=== PATIENT | female | born 1970 | race Caucasian/White ===

== ENCOUNTER → 2018-03-14 | Outpatient (CLI) | payer BC ==
--- NOTE | 2018-03-15 10:43 | MM ---
Reason for exam: screening (asymptomatic). Last mammogram was performed 4 years and 8 months ago. Physical Findings: A clinical breast exam by your physician is recommended on an annual basis and results should be correlated with mammographic findings. MG 3D Screening Mammo W/Cad Bilateral CC and MLO view(s) were taken. Prior study comparison: July 17, 2013, bilateral digital screening mammo w/CAD. No suspicious calcifications are seen. Focal asymmetry inner left CC view. ASSESSMENT: Incomplete: need additional imaging evaluation, BI-RAD 0 RECOMMENDATION: Special view mammogram of the left breast. If lesion persists on supplemental views, image directed ultrasound is recommended. [facility] will attempt to contact patient to return for supplemental views and ultrasound if indicated.
== END | disposition home or self-care (01) ==
LOC: RADMAMWWP 07:12
PROVIDERS: ATTEND Obstetrics & Gynecology
DX: Z12.31 Encounter for screening mammogram for malignant neoplasm of breast (principal)
CPT/HCPCS: 77063; 77067

== ENCOUNTER → 2018-03-17 | Outpatient (CLI) | payer BC ==
--- NOTE | 2018-03-17 09:44 | MM ---
Reason for exam: additional evaluation requested from abnormal screening. Last mammogram was performed less than 1 month ago. Physical Findings: Nurse Summary: 0.5cm nodule in the left breast at 2 o'clock, 4 o'clock (nurse kp). MG 3D Work Up W/Cad LT Spot compression CC, spot compression MLO, and LM view(s) were taken of the left breast. Prior study comparison: March 14, 2018, bilateral MG 3d screening mammo w/cad. July 17, 2013, bilateral digital screening mammo w/CAD. There are scattered fibroglandular densities. The questioned medial asymmetry disperses on additional views. 2 o'clock and 4 o'clock palpable markers. These results were verbally communicated with the patient and result sheet given to the patient on 03/17/18. ASSESSMENT: Incomplete: need additional imaging evaluation, BI-RAD 0 RECOMMENDATION: Ultrasound of the left breast. lateral half
--- NOTE | 2018-03-17 09:46 | USB ---
Reason for exam: additional evaluation requested from abnormal screening. US Breast Workup Limited LT Left limited breast ultrasound including focal area of concern, retroareolar and axilla demonstrates a 0.4 x 0.4 x 0.2cm oval, benign cyst at 12 o'clock and ductal ectasia at 1-2 o'clock retroareolar. A couple benign appearing nodes in the axilla. No abnormality seen at the 2 o'clock and 4 o'clock nurse palpated sites. These results were verbally communicated with the patient and result sheet given to the patient on 03/17/18. ASSESSMENT: Benign, BI-RAD 2 RECOMMENDATION: Return to routine screening mammogram schedule for both breasts. Manage on a clinical basis with regard to any suspicious palpable abnormality.
== END | disposition home or self-care (01) ==
LOC: RADMAMWWP 07:18
PROVIDERS: ATTEND Obstetrics & Gynecology
DX: R92.8 Other abnormal and inconclusive findings on diagnostic imaging of breast (principal)
CPT/HCPCS: 77061; 77065

== ENCOUNTER 2018-10-11 14:11 | Inpatient (IN) | payer BC ==
[2018-10-11] MEDS ORDERED: ONDANSETRON 4 MG/2 ML VIAL IVP STA (15:00)
[2018-10-11] MEDS ORDERED: SODIUM CHLORIDE 0.9% 1,000 ML IV STA ×2 (15:00→16:06)
[2018-10-11] MEDS ORDERED: ACETAMINOPHEN TAB 325 MG TAB PO STA (15:02)
--- NOTE | 2018-10-11 15:24 | ED ---
General Adult HPI <Justus Negrete - Last Filed: 10/11/18 18:19> - General Source: patient, RN notes reviewed, old records reviewed Mode of arrival: ambulatory Limitations: no limitations <Kevin Prince - Last Filed: 10/12/18 00:40> - General Chief complaint: Abdominal Pain Stated complaint: Abd pain Time Seen by Provider: 10/11/18 14:35 - History of Present Illness Initial comments: 47-year-old female patient no pertinent past medical history presents to ED with 2 days of generalized abdominal pain. Patient does state that the abdominal pain is worse in her epigastric region, describes she has had some stabbing pain in the epigastric region and generalized cramping in the base of her abdomen. Patient states that she has had nausea and vomiting today without any diarrhea. Patient also states that she has pain in her epigastric region when she takes a deep breath. Patient denies ruby chest pain or shortness of breath. Patient denies any dysuria or vaginal bleeding. Patient states that she is not . Patient denies other complaints. Systemic: Pt denies fatigue, myalgia, fever/chills, rash. Pt denies weakness, night sweats, weight loss. Neuro: Pt denies headache, visual disturbances, syncope or pre-syncope. HEENT: Pt denies ocular discharge or irritation, otalgia, rhinorrhea, pharyngitis or notable lymphadenopathy. Cardiopulmonary: Pt denies chest pain, SOB, heart palpitations, dyspnea on exertion. : Pt denies dysuria, burning w/ urination, frequency/urgency. Denies new onset urinary or bowel incontinence. MSK: Pt denies myalgia, loss of strength or function in extremities. Neuro: Pt denies new onset weakness, paresthesias. (Kevin Prince) - Related Data Home Medications Medication Instructions Recorded Confirmed Cetirizine HCl [Zyrtec] 10 mg PO DAILY PRN 10/11/18 10/11/18 Allergies Allergy/AdvReac Type Severity Reaction Status Date / Time No Known Allergies Allergy Verified 10/11/18 15:03 Review of Systems ROS Other: All systems not noted in ROS Statement are negative. <Justus Negrete - Last Filed: 10/11/18 18:19> ROS Other: All systems not noted in ROS Statement are negative. <Kevin Prince - Last Filed: 10/12/18 00:40> ROS Statement: Those systems with pertinent positive or pertinent negative responses have been documented in the HPI. Past Medical History Past Medical History: No Reported History History of Any Multi-Drug Resistant Organisms: None Reported Past Surgical History: No Surgical Hx Reported Past Psychological History: No Psychological Hx Reported Smoking Status: Former smoker Past Alcohol Use History: Rare Past Drug Use History: None Reported <Kevin Prince - Last Filed: 10/12/18 00:40> General Exam <Justus Negrete - Last Filed: 10/11/18 18:19> Limitations: no limitations <Kevin Prince - Last Filed: 10/12/18 00:40> - General Exam Comments Initial Comments: Constitutional: NAD, AOX3, Pt has pleasant affect. HEENT: NC/AT, trachea midline, neck supple, no lymphadenopathy. Posterior pharynx non erythematous, without exudates. External ears appear normal, without discharge. Mucous membranes moist. Eyes PERRLA, EOM intact. There is no scleral icterus. No pallor noted. Cardiopulmonary: RRR, no murmurs, rubs or gallops, no JVD noted. Lungs CTAB in anterior and posterior cr. No peripheral edema. Abdominal exam: Abdomen soft and non-distended. Mildly tender to palpation in epigastric region, murphys sign positive. no guarding or rigidity, no ecchymosis. Bowel sounds active in LLQ. No hepatosplenomegaly. Neuro: CN II-XII grossly intact. No nuchal rigidity. MSK: No posterior calf tenderness bilaterally, homans sign negative bilaterally. Posterior tibialis and radial pulse +2 bilaterally. Sensation intact in upper and lower extremities. Full active ROM in upper and lower extremities, 5/5 stregnth. (Kevin Prince) Course <Justus Negrete - Last Filed: 10/11/18 18:19> <Kevin Prince - Last Filed: 10/12/18 00:40> Vital Signs 10/11/18 10/11/18 10/11/18 14:16 14:42 15:00 Temperature 98.1 F Pulse Rate 72 72 68 Respiratory 18 8 L 19 Rate Blood Pressure 139/81 137/80 O2 Sat by Pulse 98 98 97 Oximetry 10/11/18 10/11/18 10/11/18 16:00 17:00 18:00 Temperature Pulse Rate 67 57 L 75 Respiratory 18 13 15 Rate Blood Pressure 136/91 118/74 114/72 O2 Sat by Pulse 98 99 96 Oximetry 10/11/18 10/11/18 10/11/18 19:00 20:00 21:00 Temperature Pulse Rate 63 66 67 Respiratory 17 15 10 L Rate Blood Pressure 115/72 135/82 134/75 O2 Sat by Pulse 95 97 100 Oximetry - Reevaluation(s) Reevaluation #1: 10/11/18 18:19 Case was discussed in detail with Dr. Jefferson, covering for Dr. Hebert. Case also discussed in detail with Dr. Carcamo. IV antibiotics will be started. GI will be placed on consult. (Justus Negrete) Medical Decision Making - Lab Data Result diagrams: 10/11/18 14:40 10/11/18 14:40 <Justus Negrete - Last Filed: 10/11/18 18:19> - Lab Data Result diagrams: 10/11/18 14:40 10/11/18 14:40 - EKG Data -: EKG Interpreted by Wy <Kevin Prince - Last Filed: 10/12/18 00:40> - Medical Decision Making 47-year-old female patient no pertinent past medical history presents to ED with 2 days of generalized abdominal pain. Patient does state that the abdominal pain is worse in her epigastric region, describes she has had some stabbing pain in the epigastric region and generalized cramping in the base of her abdomen. Patient states that she has had nausea and vomiting today without any diarrhea. Patient also states that she has pain in her epigastric region when she takes a deep breath. Patient denies ruby chest pain or shortness of breath. Patient denies any dysuria or vaginal bleeding. Patient states that she is not . Patient denies other complaints. Pt VSS, afebrile. Physical exam displayed: Abdomen soft and non-distended. Mildly tender to palpation in epigastric region, murphys sign positive. no guarding or rigidity, no ecchymosis. Bowel sounds active in LLQ. No hepatosplenomegaly. Laboratory investigations revealed non-impressive CBC, d-dimer negative. CMP revealed AST of 549, a LT of 423. Total bilirubin mildly elevated at 1.7. Plasma lactic acid was elevated at 2.3. Repeat plasma lactic acid was within normal limits after fluid administration. Urine hCG was negative. Ultrasound abdomen revealed positive sonographic Butler sign. Correlate for hepatic steatosis. Hepatomegaly. Cholelithiasis. Borderline dilated common bile duct. EKG not concerning for acute ischemia. Case was discussed in depth with Dr. Negrete. Patient to be admitted to medicine with Gen. surgery consult. GI also consulted. Pt started on IV abx. (Kevin Prince) - Lab Data Lab Results 10/11/18 10/11/18 10/11/18 Range/Units 14:40 14:40 14:40 WBC 4.5 (3.8-10.6) k/uL RBC 4.26 (3.80-5.40) m/uL Hgb 13.3 (11.4-16.0) gm/dL Hct 39.2 (34.0-46.0) % MCV 92.0 (80.0-100.0) fL MCH 31.1 (25.0-35.0) pg MCHC 33.8 (31.0-37.0) g/dL RDW 13.4 (11.5-15.5) % Plt Count 245 (150-450) k/uL Neutrophils % 64 % Lymphocytes % 25 % Monocytes % 6 % Eosinophils % 2 % Basophils % 1 % Neutrophils # 2.9 (1.3-7.7) k/uL Lymphocytes # 1.1 (1.0-4.8) k/uL Monocytes # 0.3 (0-1.0) k/uL Eosinophils # 0.1 (0-0.7) k/uL Basophils # 0.0 (0-0.2) k/uL D-Dimer (<0.60) mg/L FEU Sodium 139 (137-145) mmol/L Potassium 4.6 (3.5-5.1) mmol/L Chloride 103 (98-107) mmol/L Carbon Dioxide 25 (22-30) mmol/L Anion Gap 11 mmol/L BUN 13 (7-17) mg/dL Creatinine 0.75 (0.52-1.04) mg/dL Est GFR (CKD-EPI)AfAm >90 (>60 ml/min/1.73 sqM) Est GFR (CKD-EPI)NonAf >90 (>60 ml/min/1.73 sqM) Glucose 99 (74-99) mg/dL Lactic Ac Sepsis Rflx Plasma Lactic Acid Jorge 2.3 H* (0.7-2.0) mmol/L Calcium 9.9 (8.4-10.2) mg/dL Total Bilirubin 1.7 H (0.2-1.3) mg/dL AST 549 H (14-36) U/L ALT 423 H (9-52) U/L Alkaline Phosphatase 106 (38-126) U/L Troponin I (0.000-0.034) ng/mL Total Protein 8.3 H (6.3-8.2) g/dL Albumin 4.5 (3.5-5.0) g/dL Amylase 54 (30-110) U/L Lipase 193 (23-300) U/L Urine HCG, Qual (Not Detectd) 10/11/18 10/11/18 10/11/18 Range/Units 14:40 14:40 14:40 WBC (3.8-10.6) k/uL RBC (3.80-5.40) m/uL Hgb (11.4-16.0) gm/dL Hct (34.0-46.0) % MCV (80.0-100.0) fL MCH (25.0-35.0) pg MCHC (31.0-37.0) g/dL RDW (11.5-15.5) % Plt Count (150-450) k/uL Neutrophils % % Lymphocytes % % Monocytes % % Eosinophils % % Basophils % % Neutrophils # (1.3-7.7) k/uL Lymphocytes # (1.0-4.8) k/uL Monocytes # (0-1.0) k/uL Eosinophils # (0-0.7) k/uL Basophils # (0-0.2) k/uL D-Dimer 0.42 (<0.60) mg/L FEU Sodium (137-145) mmol/L Potassium (3.5-5.1) mmol/L Chloride (98-107) mmol/L Carbon Dioxide (22-30) mmol/L Anion Gap mmol/L BUN (7-17) mg/dL Creatinine (0.52-1.04) mg/dL Est GFR (CKD-EPI)AfAm (>60 ml/min/1.73 sqM) Est GFR (CKD-EPI)NonAf (>60 ml/min/1.73 sqM) Glucose (74-99) mg/dL Lactic Ac Sepsis Rflx Plasma Lactic Acid Jorge (0.7-2.0) mmol/L Calcium (8.4-10.2) mg/dL Total Bilirubin (0.2-1.3) mg/dL AST (14-36) U/L ALT (9-52) U/L Alkaline Phosphatase (38-126) U/L Troponin I <0.012 (0.000-0.034) ng/mL Total Protein (6.3-8.2) g/dL Albumin (3.5-5.0) g/dL Amylase (30-110) U/L Lipase (23-300) U/L Urine HCG, Qual Not Detected (Not Detectd) 10/11/18 Range/Units 15:59 WBC (3.8-10.6) k/uL RBC (3.80-5.40) m/uL Hgb (11.4-16.0) gm/dL Hct (34.0-46.0) % MCV (80.0-100.0) fL MCH (25.0-35.0) pg MCHC (31.0-37.0) g/dL RDW (11.5-15.5) % Plt Count (150-450) k/uL Neutrophils % % Lymphocytes % % Monocytes % % Eosinophils % % Basophils % % Neutrophils # (1.3-7.7) k/uL Lymphocytes # (1.0-4.8) k/uL Monocytes # (0-1.0) k/uL Eosinophils # (0-0.7) k/uL Basophils # (0-0.2) k/uL D-Dimer (<0.60) mg/L FEU Sodium (137-145) mmol/L Potassium (3.5-5.1) mmol/L Chloride (98-107) mmol/L Carbon Dioxide (22-30) mmol/L Anion Gap mmol/L BUN (7-17) mg/dL Creatinine (0.52-1.04) mg/dL Est GFR (CKD-EPI)AfAm (>60 ml/min/1.73 sqM) Est GFR (CKD-EPI)NonAf (>60 ml/min/1.73 sqM) Glucose (74-99) mg/dL Lactic Ac Sepsis Rflx Y Plasma Lactic Acid Jorge (0.7-2.0) mmol/L Calcium (8.4-10.2) mg/dL Total Bilirubin (0.2-1.3) mg/dL AST (14-36) U/L ALT (9-52) U/L Alkaline Phosphatase (38-126) U/L Troponin I (0.000-0.034) ng/mL Total Protein (6.3-8.2) g/dL Albumin (3.5-5.0) g/dL Amylase (30-110) U/L Lipase (23-300) U/L Urine HCG, Qual (Not Detectd) - EKG Data EKG Comments: Ventricular rate 60, DC interval 150, QRS 84, QT/QTc 410/410. Normal sinus rhythm, normal EKG. (Kevin Prince) Disposition <Justus Negrete - Last Filed: 10/11/18 18:19> Is patient prescribed a controlled substance at d/c from ED?: No <Kevin Prince - Last Filed: 10/12/18 00:40> Clinical Impression: Abdominal pain Disposition: ADMITTED IP TO THIS HOSP Condition: Serious
[2018-10-11 15:43] LABS: Basophils % (A) 1 %; Eosinophils # (A) 0.1 k/uL (0-0.7); Eosinophils % (A) 2 %; HCT 39.2 % (34.0-46.0); HGB 13.3 gm/dL (11.4-16.0); Lymphocytes # (A) 1.1 k/uL (1.0-4.8); Lymphocytes % (A) 25 %; MCH 31.1 pg (25.0-35.0); MCHC 33.8 g/dL (31.0-37.0); Mean Platelet Volume 7.2; Monocytes # (A) 0.3 k/uL (0-1.0); Monocytes % (A) 6 %; Neutrophils # (A) 2.9 k/uL (1.3-7.7); Neutrophils % (A) 64 %; Platelet Count 245 k/uL (150-450); RBC 4.26 m/uL (3.80-5.40); RDW 13.4 % (11.5-15.5); WBC 4.5 k/uL (3.8-10.6)
[2018-10-11 15:55] LABS: ALT 423 U/L (9-52); AST 549 U/L (14-36); Albumin 4.5 g/dL (3.5-5.0); Alkaline Phosphatase 106 U/L (38-126); Amylase 54 U/L (30-110); Anion Gap 11 mmol/L; Blood Urea Nitrogen 13 mg/dL (7-17); Calcium 9.9 mg/dL (8.4-10.2); Carbon Dioxide 25 mmol/L (22-30); Chloride 103 mmol/L (98-107); Glucose 99 mg/dL (74-99); Lipase 193 U/L (23-300); Potassium 4.6 mmol/L (3.5-5.1); Sodium 139 mmol/L (137-145); Total Bilirubin 1.7 mg/dL (0.2-1.3); Total Protein 8.3 g/dL (6.3-8.2)
[2018-10-11] MEDS ORDERED: HYDROcodone/APAP 5-325MG 1 EACH TAB PO STA (16:21)
--- NOTE | 2018-10-11 16:27 | US ---
EXAMINATION TYPE: US abdomen complete DATE OF EXAM: 10/11/2018 COMPARISON: NONE CLINICAL HISTORY: Pain. abd pain EXAM MEASUREMENTS: Liver Length: 18.3 cm, measurement may be somewhat underestimated Gallbladder Wall: 0.2 cm CBD: 0.7 cm Spleen: 13.1 cm Right Kidney: 10.4 x 4.5 x 5.1 cm Left Kidney: 11.3 x 4.2 x 5.4 cm Pancreas: wnl in visualized portions Liver: slightly enlarged, difficult to penetrate Gallbladder: multiple stones seen Evidence for sonographic Butler's sign: YES CBD: Borderline dilated Spleen: enlarged Right Kidney: wnl Left Kidney: wnl Upper IVC: wnl Abd Aorta: wnl Right and left kidney show normal cortical medullary differentiation. No ascites. IMPRESSION: Positive sonographic Butler's sign. Correlate for hepatic steatosis. Hepatomegaly. Cholel ithiasis. Borderline dilated common bile duct.
[2018-10-11] MEDS ORDERED: ONDANSETRON 4 MG/2 ML VIAL IVP PRN (17:25)
[2018-10-11] MEDS ORDERED: ACETAMINOPHEN TAB 325 MG TAB PO PRN (17:25)
[2018-10-11] MEDS ORDERED: NALOXONE 0.4 MG/ML 1 ML VIAL IV PRN (17:25)
[2018-10-11] MEDS ORDERED: AMPICILLIN-SULBACTAM 3 GM in SODIUM CHLORIDE 0.9% 50 ML IVPB SCH (18:00)
[2018-10-11] MEDS ORDERED: AMPICILLIN-SULBACTAM 3 GM in SODIUM CHLORIDE 0.9% 100 ML IVPB STA (18:34)
[2018-10-12] MEDS: AMPICILLIN-SULBACTAM 3 GM in SODIUM CHLORIDE 0.9% 100 ML IVPB SCH ×4 (00:13→19:15)
[2018-10-12] MEDS: SODIUM CHLORIDE 0.9% 1,000 ML IV SCH ×2 (00:14→19:17)
[2018-10-12] MEDS: HYDROcodone/APAP 5-325MG 1 EACH TAB PO PRN ×2 (03:18→22:18)
[2018-10-12 08:18] LABS: Basophils % (A) 0 %; Eosinophils # (A) 0.1 k/uL (0-0.7); Eosinophils % (A) 2 %; HCT 34.8 % (34.0-46.0); HGB 11.7 gm/dL (11.4-16.0); Lymphocytes % (A) 33 %; MCH 31.8 pg (25.0-35.0); MCHC 33.7 g/dL (31.0-37.0); MCV 94.4 fL (80.0-100.0); Mean Platelet Volume 6.8; Monocytes # (A) 0.2 k/uL (0-1.0); Monocytes % (A) 5 %; Neutrophils # (A) 1.8 k/uL (1.3-7.7); Neutrophils % (A) 57 %; Platelet Count 184 k/uL (150-450); RBC 3.68 m/uL (3.80-5.40); RDW 13.4 % (11.5-15.5); WBC 3.1 k/uL (3.8-10.6)
[2018-10-12 08:27] LABS: ALT 471 U/L (9-52); AST 357 U/L (14-36); Albumin 3.8 g/dL (3.5-5.0); Alkaline Phosphatase 94 U/L (38-126); Anion Gap 7 mmol/L; Blood Urea Nitrogen 12 mg/dL (7-17); Calcium 8.6 mg/dL (8.4-10.2); Carbon Dioxide 28 mmol/L (22-30); Chloride 107 mmol/L (98-107); Glucose 111 mg/dL (74-99); Potassium 5.2 mmol/L (3.5-5.1); Sodium 142 mmol/L (137-145); Total Bilirubin 1.3 mg/dL (0.2-1.3); Total Protein 6.8 g/dL (6.3-8.2)
[2018-10-12] MEDS ORDERED: PROCHLORPERAZINE SUPPOSITORY 25 MG SUPP RECTAL PRN (09:43)
[2018-10-12] MEDS ORDERED: ONDANSETRON 4 MG/2 ML VIAL IVP PRN (09:43)
--- NOTE | 2018-10-12 09:43 | P.CONS ---
History of Present Illness - Reason for Consult Consult date: 10/12/18 Elevated liver enzymes abdominal pain Requesting physician: Roberto Carlos Jefferson - Chief Complaint Abdominal pain - History of Present Illness 47-year-old female with no significant past medical history, obesity BMI 32, admitted with acute abdominal pain elevated liver enzymes intermittent 1 week. Patient states a week ago she experienced sharp abdominal across mid abdomen but the other day it localized more to the right upper quadrant with nausea and no emesis. No history of known liver disorders. No history of hepatitis. No history of medication changes, alcoholism, or intravenous drug abuse. Denies fever chills hematemesis hematochezia melena. White count 4.5. Hemoglobin 13.3 total bilirubin 1.7. AST 549. ALT 423. AP 109. HCG not detected. Lipase 193. Ultrasound reported multiple gallstones. CBD 7 mm. Hepatic steatosis. Hepatomegaly 18.3 cm. Review of Systems Constitutional: Denies fever, chills, sweats, weight gain, or loss. HEENT: Negative for migraines, blurred vision or loss, earaches, drainage, tinnitus, oral mucosal lesions, dysphagia, or odynophagia. CARDIAC: Negative for chest pain, arrhythmias, or palpitation. RESPIRATORY: Negative for shortness of breath, hemoptysis, cough, or sputum production. GI: See HPI for pertinent findings. : Negative for hematuria, urgency, frequency, polyuria, or dysuria. GYNc: Denies possibility of . Negative vaginal discharge. MUSCULOSKELETAL: Negative for muscle aches, swelling, arthritis, and arthralgias. NEUROLOGIC: Negative for stroke or TIA. ENDOCRINE: Negative for thyroid problems. SKIN: Negative for rash or itching. PSYCHIATRIC: Negative history for depression and anxiety Past Medical History Past Medical History: No Reported History Additional Past Medical History / Comment(s): pt denies any medical problems except for sinsus and seasonal allergies History of Any Multi-Drug Resistant Organisms: None Reported Past Surgical History: No Surgical Hx Reported Past Anesthesia/Blood Transfusion Reactions: No Reported Reaction Additional Past Anesthesia/Blood Transfusion Reaction / Comm: pt stated has never had any sx Past Psychological History: No Psychological Hx Reported Smoking Status: Former smoker Past Alcohol Use History: Rare Past Drug Use History: None Reported - Past Family History Mother Family Medical History: Hypertension Father Family Medical History: COPD, Hyperlipidemia, Hypertension Additional Family Medical History / Comment(s): ashd. fron a anaphylactic reaction unk source. Medications and Allergies Home Medications Medication Instructions Recorded Confirmed Type Cetirizine HCl [Zyrtec] 10 mg PO DAILY PRN 10/11/18 10/11/18 History Allergies Allergy/AdvReac Type Severity Reaction Status Date / Time No Known Allergies Allergy Verified 10/11/18 15:03 Physical Exam Vitals: Vital Signs Temp Pulse Pulse Resp BP BP Pulse Ox 10/12/18 07:34 16 10/12/18 07:29 98.0 F 59 L 16 141/90 90 L 10/12/18 00:15 98.2 F 66 15 116/66 97 10/11/18 22:05 98.8 F 65 15 125/81 96 10/11/18 21:00 67 10 L 134/75 100 10/11/18 20:00 66 15 135/82 97 10/11/18 19:00 63 17 115/72 95 10/11/18 18:00 75 15 114/72 96 10/11/18 17:00 57 L 13 118/74 99 10/11/18 16:00 67 18 136/91 98 10/11/18 15:00 68 19 137/80 97 10/11/18 14:42 72 8 L 98 10/11/18 14:16 98.1 F 72 18 139/81 98 Intake and Output 10/11/18 10/12/18 10/12/18 22:59 06:59 14:59 Other: # Voids 1 General appearance: The patient is alert, oriented, in no acute distress. HET: Head is normocephalic and atraumatic. Pupils are equal and reactive. Oropharynx is clear without lesions. Neck: Supple without lymphadenopathy. Trachea midline. Heart: S1 S2. Regular rate and rhythm. Lungs: No crackles or wheezes are heard. Abdomen: Soft, very mild tenderness midepigastrium right upper quadrant, nondistended with bowel sounds. No peritoneal signs. No palpable organomegaly or masses. Extremities: Normal skin color and turgor. No cyanosis, rash, ulceration, clubbing, or edema. Radial and pedal pulses are 2/4 bilaterally. Neurological: No focal deficits. Strength and sensation are grossly intact. Results CBC & Chem 7: 10/12/18 07:40 10/12/18 07:40 Labs: Abnormal Lab Results - Last 24 Hours (Table) 10/11/18 10/11/18 10/12/18 Range/Units 14:40 14:40 07:40 WBC 3.1 L (3.8-10.6) k/uL RBC 3.68 L (3.80-5.40) m/uL Potassium (3.5-5.1) mmol/L Glucose (74-99) mg/dL Plasma Lactic Acid Jorge 2.3 H* (0.7-2.0) mmol/L Total Bilirubin 1.7 H (0.2-1.3) mg/dL AST 549 H (14-36) U/L ALT 423 H (9-52) U/L Total Protein 8.3 H (6.3-8.2) g/dL 10/12/18 Range/Units 07:40 WBC (3.8-10.6) k/uL RBC (3.80-5.40) m/uL Potassium 5.2 H (3.5-5.1) mmol/L Glucose 111 H (74-99) mg/dL Plasma Lactic Acid Jorge (0.7-2.0) mmol/L Total Bilirubin (0.2-1.3) mg/dL AST 357 H (14-36) U/L ALT 471 H (9-52) U/L Total Protein (6.3-8.2) g/dL US - abdomen: report reviewed (Dr. Bucio) Assessment and Plan (1) Elevated liver enzymes Narrative/Plan: 47-year-old female admitted with intermittent one-week history of sharp abdominal right upper quadrant abdominal pain with elevated liver enzymes cholelithiasis with underlying hepatic steatosis. Possible symptomatic cholelithiasis underlying choledocholithiasis or passage of choledocholithiasis cannot be excluded. Total bilirubin normalized today transaminases slowly improving. Current Visit: Yes Status: Acute Code(s): R74.8 - ABNORMAL LEVELS OF OTHER SERUM ENZYMES SNOMED Code(s): 375697819 (2) Abdominal pain Current Visit: Yes Status: Acute Code(s): R10.9 - UNSPECIFIED ABDOMINAL PAIN SNOMED Code(s): 71932600 (3) Cholelithiasis Current Visit: Yes Status: Acute Code(s): K80.20 - CALCULUS OF GALLBLADDER W /O CHOLECYSTITIS W/O OBSTRUCTION SNOMED Code(s): 664553411 (4) Hepatic steatosis Current Visit: Yes Status: Acute Code(s): K76.0 - FATTY (CHANGE OF) LIVER, NOT ELSEWHERE CLASSIFIED SNOMED Code(s): 054997737 (5) Hepatomegaly Current Visit: Yes Status: Acute Code(s): R16.0 - HEPATOMEGALY, NOT ELSEWHERE CLASSIFIED SNOMED Code(s): 49861216 (6) Obesity (BMI 30.0-34.9) Current Visit: Yes Status: Chronic Code(s): E66.9 - OBESITY, UNSPECIFIED SNOMED Code(s): 668138782701817 Plan: 1. Hepatitis screen. 2. MRCP r/o choledocholithiasis. Case discussed with Dr. Oleary. Possible ERCP pending MRI results. 3. Daily CMP, CBC. Thank you for this kind referral and the opportunity to participate in the care of your patient. This consultation was discussed with Dr. Bucio. The impression and plan of care have been directed as dictated.
--- NOTE | 2018-10-12 13:44 | MR ---
EXAMINATION TYPE: MR MRCP DATE OF EXAM: 10/12/2018 COMPARISON: Ultrasound 10/11/2018 HISTORY: elevated liver enzymes abdominal pain Standard multiplanar, multisequence MRI departmental protocol Multiplanar, multisequence images of the upper abdomen were acquired. MRCP reconstructed images are p erformed by the technologist are presented. FINDINGS: Portions of the kidneys within the [id number] are unremarkable. Adrenal glands appear no rmal. Pancreas appears unremarkable. Signal through the liver appears within normal limits. No suspic ious masses or cysts are evident. Gallbladder contains filling defects. Pancreatic duct appears normal. Pancreas head appears normal. C ommon bile duct appears unremarkable on this study. Intrahepatic and extrahepatic biliary ducts where visualized appear normal. Cystic duct appears patent. IMPRESSION: 1. Normal MRCP of the common bile duct and visualized intrahepatic and extrahepatic biliary ducts. 2. Cholelithiasis. No suspicious changes suggest acute cholecystitis.
--- NOTE | 2018-10-12 14:55 | P.GSCN ---
<Aishwarya Moeller A - Last Filed: 10/12/18 14:54> History of Present Illness Consult date: 10/12/18 Reason for Consult: Possible cholecystitis, elevated liver enzymes Requesting physician: Kevin Prince History of present illness: CHIEF COMPLAINT: Abdominal pain HISTORY OF PRESENT ILLNESS: 47-year-old female presenting to the emergency room with a chief complaint of abdominal pain. Patient reports having abdominal pain near the epigastric region and right upper quadrant that began on Tuesday. She states the pain settled down and then got worse again Tuesday after eating dinner which included chicken and cheese. She reports that she has been having similar symptoms intermittently over the past month or two. She reports nausea but no emesis. Denies constipation or diarrhea. AST 549. ALT 423. Total bilirubin 1.7. GI is also consulted for evaluation. PAST MEDICAL HISTORY: See list. PAST SURGICAL HISTORY: See list. MEDICATIONS: See list. ALLERGIES: See list. SOCIAL HISTORY: No illicit drug use. REVIEW OF SYSTEMS: CONSTITUTIONAL: Denies fever or chills. HEENT: Denies blurred vision, vision changes, or eye pain. Denies hemoptysis ENDOCRINE: Denies heat or cold intolerance. CARDIOVASCULAR: Denies chest pain or pressure. RESPIRATORY: No shortness of breath. GASTROINTESTINAL: Reports abdominal pain. Reports nausea. Denies vomiting. NEURO: Denies history of seizures. PSYCH: No depression or suicidal ideation HEMATOLOGIC: Denies bleeding disorders. LYMPHATIC: The patient denies any lumps and bumps around the neck. GENITOURINARY: Denies any blood in urine or increased urinary frequency. MUSCULOSKELETAL: Denies myalgias. Denies joint swelling. Denies decreased range of motion beyond patients baseline. SKIN: Denies pruitis. Denies rash. PHYSICAL EXAM: VITAL SIGNS: Currently stable. GENERAL: Well-developed in no acute distress. Currently complaining of a headache. HEENT: No sclera icterus. Extraocular movements grossly intact. Moist buccal mucosa. Head is atraumatic, normocephalic. Hears conversational speech. No nasal drainage. NECK: Supple without lymphadenopathy. CHEST: Non-labored respirations and equal bilateral excursions. CARDIOVASCULAR: Regular rate with regular rhythm. Palpable 2+ radial pulses. ABDOMEN: Soft. Nondistended. Positive bowel sounds. Mild epigastric and right upper quadrant tenderness. MUSCULOSKELETAL: No clubbing, cyanosis or edema. NEUROLOGIC: No focal or lateralizing signs. Cranial nerves II through XII grossly intact. PSYCH: Appropriate affect. Alert and oriented to person, place and time. SKIN: Well perfused. Good skin turgor. IMAGING: Per radiology dictation: 1. Abdominal US: Hepatomegaly. 18.3 cm. Gallbladder wall 0.2 cm. Common bile duct 0.7 cm. Positive sonographic Butler sign. Correlate for hepatic steatosis. Multiple gallstones visualized. ASSESSMENT: 1. Epigastric and right upper quadrant abdominal pain x 4 days 2. Transaminitis 3. Hyperbilirubinemia 4. Cholelithiasis, possible choledocholithiasis, with possible underlying gallbladder dysfunction PLAN: 1. Patient scheduled for MRCP today per GI. Await results 2. Clear liquid diet 3. No immediate surgical intervention required 4. Monitor labs. Repeat in AM Nurse practitioner note has been reviewed by physician. Signing provider agrees with the documented findings, assessment, and plan of care. Past Medical History Past Medical History: No Reported History Additional Past Medical History / Comment(s): pt denies any medical problems except for sinsus and seasonal allergies History of Any Multi-Drug Resistant Organisms: None Reported Past Surgical History: No Surgical Hx Reported Past Anesthesia/Blood Transfusion Reactions: No Reported Reaction Additional Past Anesthesia/Blood Transfusion Reaction / Comm: pt stated has never had any sx Past Psychological History: No Psychological Hx Reported Smoking Status: Former smoker Past Alcohol Use History: Rare Past Drug Use History: None Reported - Past Family History Mother Family Medical History: Hypertension Father Family Medical History: COPD, Hyperlipidemia, Hypertension Additional Family Medical History / Comment(s): ashd. fron a anaphylactic reaction unk source. Medications and Allergies Home Medications Medication Instructions Recorded Confirmed Type Cetirizine HCl [Zyrtec] 10 mg PO DAILY PRN 10/11/18 10/11/18 History Allergies Allergy/AdvReac Type Severity Reaction Status Date / Time No Known Allergies Allergy Verified 10/11/18 15:03 Surgical - Exam Vital Signs Temp Pulse Resp BP Pulse Ox 98.1 F 72 18 139/81 98 10/11/18 14:16 10/11/18 14:16 10/11/18 14:16 10/11/18 14:16 10/11/18 14:16 Results - Labs 10/12/18 07:40 10/12/18 07:40 Abnormal Lab Results - Last 24 Hours (Table) 10/11/18 10/11/18 10/12/18 Range/Units 14:40 14:40 07:40 WBC 3.1 L (3.8-10.6) k/uL RBC 3.68 L (3.80-5.40) m/uL Potassium (3.5-5.1) mmol/L Glucose (74-99) mg/dL Plasma Lactic Acid Jorge 2.3 H* (0.7-2.0) mmol/L Total Bilirubin 1.7 H (0.2-1.3) mg/dL AST 549 H (14-36) U/L ALT 423 H (9-52) U/L Total Protein 8.3 H (6.3-8.2) g/dL 10/12/18 Range/Units 07:40 WBC (3.8-10.6) k/uL RBC (3.80-5.40) m/uL Potassium 5.2 H (3.5-5.1) mmol/L Glucose 111 H (74-99) mg/dL Plasma Lactic Acid Jorge (0.7-2.0) mmol/L Total Bilirubin (0.2-1.3) mg/dL AST 357 H (14-36) U/L ALT 471 H (9-52) U/L Total Protein (6.3-8.2) g/dL Diabetes panel 10/11/18 10/12/18 Range/Units 14:40 07:40 Sodium 139 142 (137-145) mmol/L Potassium 4.6 5.2 H (3.5-5.1) mmol/L Chloride 103 107 (98-107) mmol/L Carbon Dioxide 25 28 (22-30) mmol/L BUN 13 12 (7-17) mg/dL Creatinine 0.75 0.81 (0.52-1.04) mg/dL Glucose 99 111 H (74-99) mg/dL Calcium 9.9 8.6 (8.4-10.2) mg/dL AST 549 H 357 H (14-36) U/L ALT 423 H 471 H (9-52) U/L Alkaline Phosphatase 106 94 (38-126) U/L Total Protein 8.3 H 6.8 (6.3-8.2) g/dL Albumin 4.5 3.8 (3.5-5.0) g/dL Calcium panel 10/11/18 10/12/18 Range/Units 14:40 07:40 Calcium 9.9 8.6 (8.4-10.2) mg/dL Albumin 4.5 3.8 (3.5-5.0) g/dL Pituitary panel 10/11/18 10/12/18 Range/Units 14:40 07:40 Sodium 139 142 (137-145) mmol/L Potassium 4.6 5.2 H (3.5-5.1) mmol/L Chloride 103 107 (98-107) mmol/L Carbon Dioxide 25 28 (22-30) mmol/L BUN 13 12 (7-17) mg/dL Creatinine 0.75 0.81 (0.52-1.04) mg/dL Glucose 99 111 H (74-99) mg/dL Calcium 9.9 8.6 (8.4-10.2) mg/dL Adrenal panel 10/11/18 10/12/18 Range/Units 14:40 07:40 Sodium 139 142 (137-145) mmol/L Potassium 4.6 5.2 H (3.5-5.1) mmol/L Chloride 103 107 (98-107) mmol/L Carbon Dioxide 25 28 (22-30) mmol/L BUN 13 12 (7-17) mg/dL Creatinine 0.75 0.81 (0.52-1.04) mg/dL Glucose 99 111 H (74-99) mg/dL Calcium 9.9 8.6 (8.4-10.2) mg/dL Total Bilirubin 1.7 H 1.3 (0.2-1.3) mg/dL AST 549 H 357 H (14-36) U/L ALT 423 H 471 H (9-52) U/L Alkaline Phosphatase 106 94 (38-126) U/L Total Protein 8.3 H 6.8 (6.3-8.2) g/dL Albumin 4.5 3.8 (3.5-5.0) g/dL Assessment and Plan (1) Transaminitis Current Visit: Yes Status: Acute Code(s): R74.0 - NONSPEC ELEV OF LEVELS OF TRANSAMNS & LACTIC ACID DEHYDRGNSE SNOMED Code(s): 256496535 (2) Hyperbilirubinemia Current Visit: Yes Status: Acute Code(s): E80.6 - OTHER DISORDERS OF BILIRUBIN METABOLISM SNOMED Code(s): 73654647 (3) Abdominal pain Current Visit: Yes Status: Acute Code(s): R10.9 - UNSPECIFIED ABDOMINAL PAIN SNOMED Code(s): 61959522 (4) Cholelithiasis Current Visit: Yes Status: Acute Code(s): K80.20 - CALCULUS OF GALLBLADDER W /O CHOLECYSTITIS W/O OBSTRUCTION SNOMED Code(s): 440990344 (5) Hepatomegaly Current Visit: Yes Status: Acute Code(s): R16.0 - HEPATOMEGALY, NOT ELSEWHERE CLASSIFIED SNOMED Code(s): 10968941 (6) Obesity (BMI 30.0-34.9) Current Visit: Yes Status: Chronic Code(s): E66.9 - OBESITY, UNSPECIFIED SNOMED Code(s): 786744984779359 <Elizabeth Oleary N - Last Filed: 10/12/18 16:54> Surgical - Exam Vital Signs Temp Pulse Resp BP Pulse Ox 98.1 F 72 18 139/81 98 10/11/18 14:16 10/11/18 14:16 10/11/18 14:16 10/11/18 14:16 10/11/18 14:16 Results - Labs 10/12/18 07:40 10/12/18 07:40 Abnormal Lab Results - Last 24 Hours (Table) 10/12/18 10/12/18 Range/Units 07:40 07:40 WBC 3.1 L (3.8-10.6) k/uL RBC 3.68 L (3.80-5.40) m/uL Potassium 5.2 H (3.5-5.1) mmol/L Glucose 111 H (74-99) mg/dL AST 357 H (14-36) U/L ALT 471 H (9-52) U/L Diabetes panel 10/12/18 Range/Units 07:40 Sodium 142 (137-145) mmol/L Potassium 5.2 H (3.5-5.1) mmol/L Chloride 107 (98-107) mmol/L Carbon Dioxide 28 (22-30) mmol/L BUN 12 (7-17) mg/dL Creatinine 0.81 (0.52-1.04) mg/dL Glucose 111 H (74-99) mg/dL Calcium 8.6 (8.4-10.2) mg/dL AST 357 H (14-36) U/L ALT 471 H (9-52) U/L Alkaline Phosphatase 94 (38-126) U/L Total Protein 6.8 (6.3-8.2) g/dL Albumin 3.8 (3.5-5.0) g/dL Calcium panel 10/12/18 Range/Units 07:40 Calcium 8.6 (8.4-10.2) mg/dL Albumin 3.8 (3.5-5.0) g/dL Pituitary panel 10/12/18 Range/Units 07:40 Sodium 142 (137-145) mmol/L Potassium 5.2 H (3.5-5.1) mmol/L Chloride 107 (98-107) mmol/L Carbon Dioxide 28 (22-30) mmol/L BUN 12 (7-17) mg/dL Creatinine 0.81 (0.52-1.04) mg/dL Glucose 111 H (74-99) mg/dL Calcium 8.6 (8.4-10.2) mg/dL Adrenal panel 10/12/18 Range/Units 07:40 Sodium 142 (137-145) mmol/L Potassium 5.2 H (3.5-5.1) mmol/L Chloride 107 (98-107) mmol/L Carbon Dioxide 28 (22-30) mmol/L BUN 12 (7-17) mg/dL Creatinine 0.81 (0.52-1.04) mg/dL Glucose 111 H (74-99) mg/dL Calcium 8.6 (8.4-10.2) mg/dL Total Bilirubin 1.3 (0.2-1.3) mg/dL AST 357 H (14-36) U/L ALT 471 H (9-52) U/L Alkaline Phosphatase 94 (38-126) U/L Total Protein 6.8 (6.3-8.2) g/dL Albumin 3.8 (3.5-5.0) g/dL Assessment and Plan Plan: MRCP reviewed with gallstones. No CBD stone. Will await resolution of liver enzymes. Cholecystectomy described. Low fat diet needed.
[2018-10-12] MEDS: ASPIRIN-ACET-CAFF 250-250-65MG 1 EACH TAB PO PRN (15:47)
--- NOTE | 2018-10-12 17:37 | P.HPIM ---
History of Present Illness H&P Date: 10/12/18 Chief Complaint: Abdominal pain History of presenting complaint: This is a very pleasant 47-year-old patient of Dr. Tory Hebert. An unremarkable good health. About 4 days ago started having increasing right upper quadrant pain. She did improve. Pain did come back again. More so in the upper abdomen. Getting worse. Pain is present off and on. There was no fever or chills. Some nausea was present. No fevers. Patient presented to the ER. As pain is getting worse. Found to have gallstones. Admitted for the same. Liver enzymes were elevated and is concerned about stone in the duct. Earlier today M PROP SAWYER was ordered. 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 Does not smoke or drink alcohol. . Family history: Hypertension, coronary artery disease Physical examination: VITAL SIGNS: 98.1, 72, 18, 139/81, 98% room air GENERAL: BMI 32.3, well built, sitting up, comfortable. EYES: Pupils equal. Conjunctiva normal. HEENT: External appearance of nose and ears normal, oral cavity grossly normal. NECK: JVD not raised; masses not palpable. HEART: First and second heart sounds are normal; no edema. LUNGS: Respiratory rate normal; clear to auscultation. ABDOMEN: Soft, right upper quadrant tenderness, no guarding or rigidity liver spleen not palpable, no masses palpable. LYMPHATICS: No lymph nodes palpable in the axilla and neck. PSYCH: Alert and oriented x3; mood and affect normal. NEUROLOGICAL: Cranial nerves grossly intact; no facial asymmetry, power and sensation grossly intact. Investigations-reviewed in the context of clinical picture White count 4.5 (33 potassium 4.6 lactic acid 2.3 total bilirubin 1.7 AST 549 AST 423 Abdominal ultrasound-hepatic steatosis, hepatomegaly, cholelithiasis. Borderline dilated common bile duct EKG-tracing personally reviewed by me shows normal sinus rhythm MRCP-no dilated ducts. No intrahepatic or extrahepatic duct dilatation. Cholelithiasis Assessment: -Acute cholelithiasis. No obvious evidence of cholecystitis. No fever and no white count. -Obesity BMI 32.3 -Obstructive hepatitis, possibly from stone, being passed -Hyper bilirubinemia Plan: Patient was seen earlier by GI and general surgery Dr. Carcamo. Patient does not need a ERCP. Should be able to be proceeding with cholecystectomy. Care was discussed the patient's is at bedside. Follow with surgery. Add Lovenox for DVT prophylaxis Past Medical History Past Medical History: No Reported History Additional Past Medical History / Comment(s): pt denies any medical problems except for sinsus and seasonal allergies History of Any Multi-Drug Resistant Organisms: None Reported Past Surgical History: No Surgical Hx Reported Past Anesthesia/Blood Transfusion Reactions: No Reported Reaction Additional Past Anesthesia/Blood Transfusion Reaction / Comment(s): pt stated has never had any sx Past Psychological History: No Psychological Hx Reported Smoking Status: Former smoker Past Alcohol Use History: Rare Past Drug Use History: None Reported - Past Family History Mother Family Medical History: Hypertension Father Family Medical History: COPD, Hyperlipidemia, Hypertension Additional Family Medical History / Comment(s): ashd. fron a anaphylactic reaction unk source. Medications and Allergies Home Medications Medication Instructions Recorded Confirmed Type Cetirizine HCl [Zyrtec] 10 mg PO DAILY PRN 10/11/18 10/11/18 History Allergies Allergy/AdvReac Type Severity Reaction Status Date / Time No Known Allergies Allergy Verified 10/11/18 15:03 Physical Exam Vitals: Vital Signs Temp Pulse Pulse Resp BP BP Pulse Ox 10/12/18 07:34 16 10/12/18 07:29 98.0 F 59 L 16 141/90 90 L 10/12/18 00:15 98.2 F 66 15 116/66 97 10/11/18 22:05 98.8 F 65 15 125/81 96 10/11/18 21:00 67 10 L 134/75 100 10/11/18 20:00 66 15 135/82 97 10/11/18 19:00 63 17 115/72 95 10/11/18 18:00 75 15 114/72 96 10/11/18 17:00 57 L 13 118/74 99 10/11/18 16:00 67 18 136/91 98 Intake and Output 10/12/18 10/12/18 10/12/18 06:59 14:59 22:59 Other: # Voids 1 Results CBC & Chem 7: 10/12/18 07:40 10/12/18 07:40 Labs: Abnormal Lab Results - Last 24 Hours (Table) 10/11/18 10/11/18 10/12/18 Range/Units 14:40 14:40 07:40 WBC 3.1 L (3.8-10.6) k/uL RBC 3.68 L (3.80-5.40) m/uL Potassium (3.5-5.1) mmol/L Glucose (74-99) mg/dL Plasma Lactic Acid Jorge 2.3 H* (0.7-2.0) mmol/L Total Bilirubin 1.7 H (0.2-1.3) mg/dL AST 549 H (14-36) U/L ALT 423 H (9-52) U/L Total Protein 8.3 H (6.3-8.2) g/dL 10/12/18 Range/Units 07:40 WBC (3.8-10.6) k/uL RBC (3.80-5.40) m/uL Potassium 5.2 H (3.5-5.1) mmol/L Glucose 111 H (74-99) mg/dL Plasma Lactic Acid Jorge (0.7-2.0) mmol/L Total Bilirubin (0.2-1.3) mg/dL AST 357 H (14-36) U/L ALT 471 H (9-52) U/L Total Protein (6.3-8.2) g/dL Thrombosis Risk Factor Assmnt - Choose All That Apply Each Factor Represents 1 point: Age 41-60 years Thrombosis Risk Factor Assessment Total Risk Factor Score: 1 Thrombosis Risk Factor Assessment Level: Low Risk
[2018-10-12] MEDS ORDERED: ENOXAPARIN 40 MG/0.4 ML SYRINGE SQ SCH (18:00)
[2018-10-13] MEDS: AMPICILLIN-SULBACTAM 3 GM in SODIUM CHLORIDE 0.9% 100 ML IVPB SCH ×3 (00:02→12:22)
[2018-10-13] MEDS: SODIUM CHLORIDE 0.9% 1,000 ML IV SCH (00:03)
[2018-10-13] MEDS: ASPIRIN-ACET-CAFF 250-250-65MG 1 EACH TAB PO PRN (04:22)
[2018-10-13 07:58] VITALS: BP 149/83; PULSE 63; RESP 17; TEMP 98.4
[2018-10-13 08:04] LABS: Basophils % (A) 0 %; Eosinophils # (A) 0.1 k/uL (0-0.7); Eosinophils % (A) 1 %; HCT 33.4 % (34.0-46.0); HGB 11.4 gm/dL (11.4-16.0); Lymphocytes # (A) 1.4 k/uL (1.0-4.8); Lymphocytes % (A) 35 %; MCH 32.4 pg (25.0-35.0); MCHC 34.2 g/dL (31.0-37.0); MCV 94.6 fL (80.0-100.0); Mean Platelet Volume 7.2; Monocytes # (A) 0.2 k/uL (0-1.0); Monocytes % (A) 5 %; Neutrophils # (A) 2.2 k/uL (1.3-7.7); Neutrophils % (A) 56 %; Platelet Count 203 k/uL (150-450); RBC 3.53 m/uL (3.80-5.40); RDW 13.5 % (11.5-15.5); WBC 3.9 k/uL (3.8-10.6)
[2018-10-13 08:19] LABS: INR 1.1 (<1.2); Prothrombin Time 11.5 sec (9.0-12.0)
[2018-10-13 08:21] LABS: ALT 311 U/L (9-52); AST 128 U/L (14-36); Albumin 3.7 g/dL (3.5-5.0); Alkaline Phosphatase 88 U/L (38-126); Anion Gap 8 mmol/L; Blood Urea Nitrogen 9 mg/dL (7-17); Calcium 8.8 mg/dL (8.4-10.2); Carbon Dioxide 24 mmol/L (22-30); Chloride 109 mmol/L (98-107); Glucose 102 mg/dL (74-99); Potassium 3.9 mmol/L (3.5-5.1); Sodium 141 mmol/L (137-145); Total Bilirubin 0.6 mg/dL (0.2-1.3); Total Protein 6.7 g/dL (6.3-8.2)
--- NOTE | 2018-10-13 10:51 | P.PN ---
Subjective Progress Note Date: 10/13/18 Principal diagnosis: Abdominal pain elevated liver enzymes 47-year-old female with a history of cholelithiasis admitted with acute abdominal pain right upper quadrant with elevated liver enzymes. Abdominal pain resolved. MRCP completed yesterday reported as normal no biliary duct dilatation no evidence of choledocholithiasis no suspicious changes to suggest acute cholecystitis. Hepatitis screen pending. LFTs improved total bilirubin 0.6. AST 120. ALT 311. APAP 88. Objective - Vital Signs Vital signs: Vital Signs Temp 98.4 F 10/13/18 07:00 Pulse 63 10/13/18 07:00 Resp 17 10/13/18 07:00 BP 149/83 10/13/18 07:00 Pulse Ox 96 10/13/18 07:00 Intake & Output 10/12/18 10/13/18 10/13/18 18:59 06:59 18:59 Intake Total 550 Balance 550 Intake: Intake, IV Titration 400 Amount Ampicillin-Sulbactam 3 gm 200 In Sodium Chloride 0.9% 100 ml @ 200 mls/hr IVPB Q6H [facility] Rx#:[id number] Sodium Chloride 0.9% 1, 200 000 ml @ 20 mls/hr IV . Q24H [facility] Rx#:[id number] Oral 150 Other: # Voids 3 3 - Exam General appearance: The patient is alert, oriented, in no acute distress. HET: Head is normocephalic and atraumatic. Pupils are equal and reactive. Oropharynx is clear without lesions. Neck: Supple without lymphadenopathy. Trachea midline. Heart: S1 S2. Regular rate and rhythm. Lungs: No crackles or wheezes are heard. Abdomen: Soft, nontender, nondistended with bowel sounds. No peritoneal signs. No palpable organomegaly or masses. Extremities: Normal skin color and turgor. No cyanosis, rash, ulceration, clubbing, or edema. Radial and pedal pulses are 2/4 bilaterally. Neurological: No focal deficits. Strength and sensation are grossly intact. - Labs CBC & Chem 7: 10/13/18 07:27 10/13/18 07:27 Labs: Abnormal Lab Results - Last 24 Hours (Table) 10/12/18 10/12/18 Range/Units 07:40 07:40 WBC 3.1 L (3.8-10.6) k/uL RBC 3.68 L (3.80-5.40) m/uL Potassium 5.2 H (3.5-5.1) mmol/L Glucose 111 H (74-99) mg/dL AST 357 H (14-36) U/L ALT 471 H (9-52) U/L Assessment and Plan (1) Elevated liver enzymes Narrative/Plan: Possible symptomatic cholelithiasis possible passage of choledocholithiasis LFTs improving unremarkable MRCP Current Visit: Yes Status: Acute Code(s): R74.8 - ABNORMAL LEVELS OF OTHER SERUM ENZYMES SNOMED Code(s): 519749105 (2) Abdominal pain Current Visit: Yes Status: Acute Code(s): R10.9 - UNSPECIFIED ABDOMINAL PAIN SNOMED Code(s): 89876566 (3) Cholelithiasis Current Visit: Yes Status: Acute Code(s): K80.20 - CALCULUS OF GALLBLADDER W /O CHOLECYSTITIS W/O OBSTRUCTION SNOMED Code(s): 494717653 (4) Hepatic steatosis Current Visit: Yes Status: Acute Code(s): K76.0 - FATTY (CHANGE OF) LIVER, NOT ELSEWHERE CLASSIFIED SNOMED Code(s): 601462609 (5) Hepatomegaly Current Visit: Yes Status: Acute Code(s): R16.0 - HEPATOMEGALY, NOT ELSEWHERE CLASSIFIED SNOMED Code(s): 16309262 (6) Obesity (BMI 30.0-34.9) Current Visit: Yes Status: Chronic Code(s): E66.9 - OBESITY, UNSPECIFIED SNOMED Code(s): 638409310088915 Plan: 1. ERCP not recommended at this time considering improvement of LFTs and unremarkable MRCP. Diet as tolerated per surgery. Assessment and plan a care discussed with Dr. Bucio
--- NOTE | 2018-10-13 11:17 | P.PN ---
<Aishwarya Moeller - Last Filed: 10/13/18 11:10> Subjective Progress Note Date: 10/13/18 CHIEF COMPLAINT: Abdominal pain HISTORY OF PRESENT ILLNESS: Patient examined at the bedside. She is awake and alert. Denies abdominal pain. Tolerating liquid diet. Patient underwent MRCP yesterday which revealed normal MRCP of common bile duct and visualized intrahepatic and extrahepatic biliary ducts. Cholelithiasis. No suspicious changes to suggest acute cholecystitis. Lab work today reveals bilirubin 0.6. AST 128. ALT 311. PHYSICAL EXAM: VITAL SIGNS: Currently stable. GENERAL: Well-developed in no acute distress. Currently complaining of a headache. HEENT: No sclera icterus. Extraocular movements grossly intact. Moist buccal mucosa. Head is atraumatic, normocephalic. Hears conversational speech. No nasal drainage. NECK: Supple without lymphadenopathy. CHEST: Non-labored respirations and equal bilateral excursions. CARDIOVASCULAR: Regular rate with regular rhythm. Palpable 2+ radial pulses. ABDOMEN: Soft. Nondistended. Positive bowel sounds. MUSCULOSKELETAL: No clubbing, cyanosis or edema. NEUROLOGIC: No focal or lateralizing signs. Cranial nerves II through XII grossly intact. PSYCH: Appropriate affect. Alert and oriented to person, place and time. SKIN: Well perfused. Good skin turgor. ASSESSMENT: 1. Epigastric and right upper quadrant abdominal pain x 4 days 2. Transaminitis, improving 3. Hyperbilirubinemia, resolved 4. Cholelithiasis PLAN: May advance diet to low fat diet. Patient will require cholecystectomy once liver enzymes have returned to normal. Patient may be discharged from a surgical standpoint and follow up with Dr. Oleary for outpatient cholecystectomy. Nurse practitioner note has been reviewed by physician. Signing provider agrees with the documented findings, assessment, and plan of care. Objective - Vital Signs Vital signs: Vital Signs Temp 98.4 F 10/13/18 07:00 Pulse 63 10/13/18 07:00 Resp 17 10/13/18 08:00 BP 149/83 10/13/18 07:00 Pulse Ox 96 10/13/18 07:00 Intake & Output 10/12/18 10/13/18 10/13/18 18:59 06:59 18:59 Intake Total 550 Balance 550 Intake: Intake, IV Titration 400 Amount Ampicillin-Sulbactam 3 gm 200 In Sodium Chloride 0.9% 100 ml @ 200 mls/hr IVPB Q6H [facility] Rx#:[id number] Sodium Chloride 0.9% 1, 200 000 ml @ 20 mls/hr IV . Q24H [facility] Rx#:[id number] Oral 150 Other: Voiding Method Toilet # Voids 3 3 - Labs CBC & Chem 7: 10/13/18 07:27 10/13/18 07:27 Labs: Abnormal Lab Results - Last 24 Hours (Table) 10/13/18 10/13/18 Range/Units 07:27 07:27 RBC 3.53 L (3.80-5.40) m/uL Hct 33.4 L (34.0-46.0) % Chloride 109 H (98-107) mmol/L Glucose 102 H (74-99) mg/dL AST 128 H (14-36) U/L ALT 311 H (9-52) U/L Assessment and Plan (1) Transaminitis Status: Acute Code(s): R74.0 - NONSPEC ELEV OF LEVELS OF TRANSAMNS & LACTIC ACID DEHYDRGNSE SNOMED Code(s): 149330994 (2) Hyperbilirubinemia Status: Acute Code(s): E80.6 - OTHER DISORDERS OF BILIRUBIN METABOLISM SNOMED Code(s): 93532364 (3) Abdominal pain Status: Acute Code(s): R10.9 - UNSPECIFIED ABDOMINAL PAIN SNOMED Code(s): 47031690 (4) Cholelithiasis Status: Acute Code(s): K80.20 - CALCULUS OF GALLBLADDER W/O CHOLECYSTITIS W/O OBSTRUCTION SNOMED Code(s): 940439089 (5) Hepatomegaly Status: Acute Code(s): R16.0 - HEPATOMEGALY, NOT ELSEWHERE CLASSIFIED SNOMED Code(s): 37248396 (6) Obesity (BMI 30.0-34.9) Status: Chronic Code(s): E66.9 - OBESITY, UNSPECIFIED SNOMED Code(s): 355274377514775 <Elizabeth Oleary N - Last Filed: 10/15/18 12:23> Objective - Vital Signs Vital signs: Vital Signs Temp 98.4 F 10/13/18 07:00 Pulse 63 10/13/18 07:00 Resp 17 10/13/18 08:00 BP 149/83 10/13/18 07:00 Pulse Ox 96 10/13/18 07:00 - Labs CBC & Chem 7: 10/13/18 07:27 10/13/18 07:27 Assessment and Plan Plan: Patient's labs are still elevated. Agreeable with out-patient cholecystectomy as an outpatient.
[2018-10-13 13:07] LABS: Hepatitis A Antibody IgM Non-Reactive (Non-Reactive); Hepatitis B Core IgM Non-Reactive (Non-Reactive)
--- NOTE | 2018-10-14 08:32 | DS ---
DISCHARGE SUMMARY DATE OF ADMISSION: October 11, 2018. DATE OF DISCHARGE: October 13, 2018. FINAL DIAGNOSES: 1. Acute symptomatic cholelithiasis. 2. Obesity BMI 32.3. 3. Obstructive hepatitis probably from gallstone being passed. 4. Hyperbilirubinemia. CONSULTATION: Dr. Bucio from Gastroenterology, Dr. Oleary from General surgery. HOSPITAL COURSE: The patient presents with right upper quadrant pain, found to have gallstones, AST, ALT was up to 549 and 5423. Did come down to 128 x 311. Patient's hepatitis screen was unremarkable. The patient did undergo MRCP that did not show any biliary dilatation. The patient is seen by Dr. Bucio from Gastroenterology. The patient not to get an ERCP. Also seen by Dr. Oleary. The patient will be set up for surgery down the road. Not for any intervention on this admission. PHYSICAL EXAMINATION: Temperature 98.4, pulse 73, respiration 17, blood pressure 149/83, pulse ox 96 percent on room air. ABDOMEN: Soft, nontender. INVESTIGATIONS: White count 3.9, hemoglobin 11.4, potassium 3.9. AST 128, ALT 311. FOLLOW UP: Follow up with Dr. Oleary on 10/18/2018, follow up with Chanda Hebert. DISCHARGE MEDICATIONS: Cetirizine 10 mg p.o. daily p.r.n. DIET: Low-fat diet. Copy to Chanda Hebert. MMASADL / IJN: [id number] /
== END 2018-10-13 14:30 | disposition home or self-care (01) | DRG 446 ==
LOC: EC 14:11 → 4SSUR 18:20
PROVIDERS: ADMIT Hospitalist; ATTEND Hospitalist
DX: K80.20 Calculus of gallbladder without cholecystitis without obstruction (principal); K75.9 Inflammatory liver disease, unspecified; K76.0 Fatty (change of) liver, not elsewhere classified; E66.9 Obesity, unspecified; J30.2 Other seasonal allergic rhinitis; E80.7 Disorder of bilirubin metabolism, unspecified; Z68.32 Body mass index [BMI] 32.0-32.9, adult; Z87.891 Personal history of nicotine dependence; Z82.5 Family history of asthma and other chronic lower respiratory diseases; Z83.49 Family history of other endocrine, nutritional and metabolic diseases; Z84.89 Family history of other specified conditions; Z82.49 Family history of ischemic heart disease and other diseases of the circulatory system
CPT/HCPCS: 36415; 74181; 76700; 80053; 80074; 81025; 82150; 83605; 83690; 84484; 85025; 85379; 85610; 93005; 96361; 96365; 96366; 96375; 99285

== ENCOUNTER → 2023-05-19 | Outpatient (CLI) | payer BC ==
--- NOTE | 2023-05-20 08:15 | MM ---
Reason for Exam: Screening (asymptomatic). Last mammogram was performed 5 year(s) and 2 month(s) ago. Patient History: Menarche at age 18. First Full-Term at age 26. Postmenopausal. Risk Values: Chuyita 5 year model risk: 0.8%. NCI Lifetime model risk: 7.4%. Prior Study Comparison: 07/17/2013 Bilateral Screening Mammogram, [facility]. 03/14/2018 Bilateral Screening Mammogram, [facility]. 03/17/2018 Left Diagnostic Mammogram, [facility]. Tissue Density: The breast tissue is heterogeneously dense. This may lower the sensitivity of mammography. Findings: Analyzed By CAD. There is no suspicious group of microcalcifications or new suspicious mass in either breast. Overall Assessment: Negative, BI-RAD 1 Management: Screening Mammogram of both breasts in 1 year. A clinical breast exam by your physician is recommended on an annual basis and results should be correlated with mammographic findings. Note on Chuyita scores and lifetime risk: 1. A Chuyita score greater than 3% is considered moderate risk. If this is the case, consider specialist referral to assess eligibility for a risk reducing agent. If overall lifetime risk for the development of breast cancer is 20% or higher, the patient may qualify for future screening with alternating mammogram and breast MRI. Electronically signed and approved by: Gonzalez Claudio D.O.
== END | disposition home or self-care (01) ==
LOC: RADMAMWWP 15:27
PROVIDERS: ATTEND Obstetrics & Gynecology
DX: Z12.31 Encounter for screening mammogram for malignant neoplasm of breast (principal); Z78.0 Asymptomatic menopausal state
CPT/HCPCS: 77063; 77067

== ENCOUNTER → 2024-08-01 | Outpatient (CLI) | payer BC ==
--- NOTE | 2024-08-06 10:13 | MM ---
Reason for Exam: Screening (asymptomatic). Last mammogram was performed 1 year(s) and 3 month(s) ago. Patient History: Menarche at age 18. First Full-Term at age 26. Postmenopausal. Risk Values: Chuyita 5 year model risk: 0.8%. NCI Lifetime model risk: 7.2%. Prior Study Comparison: 03/14/2018 Bilateral Screening Mammogram, [facility]. 03/17/2018 Left Diagnostic Mammogram, [facility]. 05/19/2023 Bilateral MG 3D screening mammo w/cad, [facility]. Tissue Density: There are scattered areas of fibroglandular density. Findings: Analyzed By CAD. There is no suspicious group of microcalcifications or new suspicious mass in either breast. Overall Assessment: Negative, BI-RAD 1 Management: Screening Mammogram of both breasts in 1 year. . Patient should continue monthly self-breast exams. A clinical breast exam by your physician is recommended on an annual basis. This exam should not preclude additional follow-up of suspicious palpable abnormalities. Note on Chuyita scores and lifetime risk: 1. A Chuyita score greater than 3% is considered moderate risk. If this is the case, consider specialist referral to assess eligibility for a risk reducing agent. 2. If overall lifetime risk for the development of breast cancer is 20% or higher, the patient may qualify for future screening with alternating mammogram and breast MRI. [facility], , 08/06/2024 10:10 AM. Electronically signed and approved by: Nathan Black M.D. Radiologis
== END | disposition home or self-care (01) ==
LOC: RADMAMWWP 14:59
PROVIDERS: ATTEND Obstetrics & Gynecology
DX: Z12.31 Encounter for screening mammogram for malignant neoplasm of breast (principal); R92.323 Mammographic fibroglandular density, bilateral breasts; Z78.0 Asymptomatic menopausal state
CPT/HCPCS: 77063; 77067